=== PATIENT | male | born 1980 | race Caucasian/White ===

== ENCOUNTER 2017-01-24 19:02 | Emergency (ER) | payer OTHER ==
[~2017-01-24] VITALS: Ht 175.3 cm; Wt 93.3 kg
[~2017-01-24 19:02] MED LIST: MOTRIN800 MG PO; NOHOMEMEDS; SKELAXIN400 M1 PO
[2017-01-24 20:01] LABS: HEMATOCRIT 46.1 % (38.0-50.0); MCH 29.1 PG (29.0-34.0); MCHC 34.9 G/DL (30.0-36.0); MCV 83.4 FL (86-99); MEAN PLAT.VOLUME 10.9 uM^3 (9.0-12.4); PLATELET COUNT 226 K/uL (156-360); RBC DIS.WIDTH-CV 12.2 % (11.8-14.6); RBC DIS.WIDTH-SD 37.3 % (39-53); RED BLOOD COUNT 5.53 M/uL (4.00-5.50); WHITE BLOOD COUNT 8.3 K/uL (4.1-10.2)
[2017-01-24 20:11] LABS: CHLORIDE 106 mEq/L (99-109)
[2017-01-24 20:12] LABS: POTASSIUM 3.3 mEq/L (3.7-5.4); SODIUM 140 mEq/L (136-147)
[2017-01-24 20:13] LABS: GLUCOSE 121 mg/dL (70-99)
[2017-01-24 20:15] LABS: ANION GAP 11 MEQ/L (2-14)
[2017-01-24 20:17] LABS: GFR ESTIMATE (CALCULATED) > 59 mL/min/
[2017-01-24] MEDS ORDERED: ADDERALL30 MG PO (20:17)
[2017-01-24 20:18] LABS: UREA NITROGEN (BUN) 14 mg/dL (9-23)
[2017-01-24] MEDS ORDERED: IBUPROFEN400 MG PO (20:18)
[2017-01-24] MEDS ORDERED: KEFLEX500 MG PO (21:53)
[2017-01-24] MEDS ORDERED: MOTRIN600 MG PO (21:53)
[2017-01-24] MEDS ORDERED: PERCOCET 5/31 TABLET PO (21:53)
[2017-01-24 22:20] VITALS: BP 127/84
== END 2017-01-24 22:22 | disposition home or self-care (01) ==
LOC: EME 19:02
PROVIDERS: Physician Assistant
DX: L03.311 Cellulitis of abdominal wall (principal)
CPT/HCPCS: 74177; 80048; 83605; 85027; 99281; 99285; J1885; J7030

== ENCOUNTER 2017-05-27 16:53 | Emergency (ER) | payer BC ==
[~2017-05-27] VITALS: Ht 175.3 cm; Wt 89.4 kg
[~2017-05-27 16:53] MED LIST changes: +ADDERALL30 MG PO; +IBUPROFEN400 MG PO; +KEFLEX500 MG PO; +MOTRIN600 MG PO; +PERCOCET 5/31 TABLET PO
[2017-05-27] MEDS ORDERED: PERCOCET 5/31 TABLET PO (19:31)
[2017-05-27 20:04] VITALS: BP 129/79
== END 2017-05-27 20:05 | disposition home or self-care (01) ==
LOC: EME 16:53
DX: T24.201A Burn of second degree of unspecified site of right lower limb, except ankle and foot, initial encounter (principal); T23.201A Burn of second degree of right hand, unspecified site, initial encounter; T20.20XA Burn of second degree of head, face, and neck, unspecified site, initial encounter; X03.0XXA Exposure to flames in controlled fire, not in building or structure, initial encounter; Y93.89 Activity, other specified; F17.200 Nicotine dependence, unspecified, uncomplicated
CPT/HCPCS: 99281; 99285

== ENCOUNTER 2017-12-27 21:11 | Emergency (ER) | payer BC ==
[~2017-12-27] VITALS: Ht 175.3 cm; Wt 93.2 kg
[2017-12-27 21:32] LABS: HEMATOCRIT 46.2 % (38.0-50.0); HEMOGLOBIN 16.5 G/DL (12.5-16.6); MCH 29.8 PG (29.0-34.0); MCHC 35.7 G/DL (30.0-36.0); MCV 83.4 FL (86-99); PLATELET COUNT 218 K/uL (156-360); RBC DIS.WIDTH-CV 12.3 % (11.8-14.6); RBC DIS.WIDTH-SD 37.4 % (39-53); RED BLOOD COUNT 5.54 M/uL (4.00-5.50); WHITE BLOOD COUNT 10.6 K/uL (4.1-10.2)
[2017-12-27 21:55] LABS: TROP-I INTERPRETATION NEGATIVE; TROPONIN-I < 0.01 ng/mL (0.0-0.30)
[2017-12-27 22:07] LABS: ALBUMIN 4.4 g/dL (3.2-4.8); CHLORIDE 106 mEq/L (99-109); POTASSIUM 4.1 mEq/L (3.7-5.4); SODIUM 141 mEq/L (136-147)
[2017-12-27 22:09] LABS: GLUCOSE 97 mg/dL (70-99); TOTAL PROTEIN 7.1 g/dL (6.4-8.3)
[2017-12-27 22:11] LABS: TOTAL BILIRUBIN 1.1 mg/dL (0.0-1.0)
[2017-12-27 22:13] LABS: ALKALINE PHOSPHATASE 68 IU/L (3-129); CREATININE 1.6 mg/dL (0.6-1.3); GFR ESTIMATE (CALCULATED) 52 mL/min/ (58.99-99999)
[2017-12-27 22:14] LABS: UREA NITROGEN (BUN) 14 mg/dL (9-23)
[2017-12-27 22:15] LABS: AST (GOT) 25 IU/L (2-34)
[2017-12-27 22:16] LABS: ALT (GPT) 58 IU/L (3-49)
[2017-12-28 00:32] LABS: TROP-I INTERPRETATION NEGATIVE; TROPONIN-I < 0.01 ng/mL (0.0-0.30)
[2017-12-28 01:31] VITALS: BP 122/93
== END 2017-12-28 01:32 | disposition home or self-care (01) ==
LOC: EME 21:11
PROVIDERS: Emergency Medicine
DX: R07.89 Other chest pain (principal); X02.1XXA Exposure to smoke in controlled fire in building or structure, initial encounter; F17.200 Nicotine dependence, unspecified, uncomplicated
CPT/HCPCS: 71045; 80053; 82810; 83605; 84484; 85027; 93005; 99281; 99284; J2405; J7030